=== PATIENT | male | born 1985 | race Hispanic/Latino ===

== ENCOUNTER 2023-04-16 06:16 | Inpatient (IN) | payer OTHER, SELFPAY ==
[2023-04-06 08:24] VITALS: BMI 29.7
[2023-04-16] VITALS (22 sets, daily range): BP systolic 99–132; BP diastolic 43–86; PULSE 69–114; RESP 9–21; TEMP 36–37.7; O2SAT 92–100; BMI 27.2
[2023-04-16] MEDS: ACETAMINOPHEN 325 MG TABLET 975 MG PO (06:58)
[2023-04-16] MEDS: LACTATED RINGERS 1,000 ML 42 ML IV ×2 (07:04→09:26)
--- NOTE | 2023-04-16 07:51 | PM.PREOP ---
Pre-operative Note Interval Note History & Physical reviewed/Exam performed by Physician: Yes Changes to H&P: No
[2023-04-16] MEDS: CEFAZOLIN 2 GM/100 ML PREMIX 100 ML IV ×3 (08:00→23:14)
--- NOTE | 2023-04-16 08:34 | SUR.OPER ---
Prone on spine table, head in foam head support, padded chest and pelvic supports, gel pad at knees, lower legs supported by pillows; nipples, genitalia and toes free of pressure, arms secured on foam padded arm boards at <90 degrees abduction. Tape over blanket at thigh secured to table.
[2023-04-16] MEDS: BUPIVACAINE LIPOSOME 266 MG/20 ML VIAL INJ (08:43)
[2023-04-16] MEDS: BUPIVACAINE 0.25% (PF) 30 ML, EPINEPHrine 0.15 MG INJ (08:43)
--- NOTE | 2023-04-16 10:36 | DI.RAD.S_ITS ---
PROCEDURE: XR LUMBAR SPINE 2-3V INDICATIONS: L5-S1 TLIF TECHNIQUE: 2 intraoperative views of the lumbar spine were acquired. COMPARISON: None. FINDINGS: Intraoperative exam during L5-S1 posterior spinal fixation and discectomy. The hardware appears intact. IMPRESSION: Intraoperative exam during L5-S1 posterior spinal fixation and discectomy. The hardware appears intact. Dictated by: Jose Zepeda M.D. on 04/16/2023 at 11:12 Approved by: Jose Zepeda M.D. on 04/16/2023 at 11:12
--- NOTE | 2023-04-16 10:48 | PM.OP.1 ---
Operative Date/Time/Diagnoses Date of procedure: 04/16/23 Time of procedure: 07:40 Pre-op diagnosis: 1. L5-S1 post laminectomy syndrome 2. L5-S1 spinal stenosis with radiculopathy 3. L4-5 spinal stenosis with radiculopathy Post-op diagnosis: same Procedure & Clinicians Procedure: 1. L5-S1 Postero-lateral and posterior interbody fusion 2. L5-S1 interbody cage placement. 3. L5-S1 decompressive laminectomy with bilateral facetecomies 4. L5-S1 Posterior non-segmental instrumentation 5. L4-5 left hemilaminectomy 6. [place] of bone marrow from iliac crest 7. Utilization of microsurgical technique and operating microscope Same procedure as scheduled: Yes Indications: Patient has been having chronic back pain and worsening lumbar radiculopathy. Patient had prior lumbar decompression surgery at L5-S1 with residual scar tissue and persistent severe lateral recess stenosis. There is a central stenosis at L4-5 along with lateral recess stenosis contributing to radiculopathy. Patient failed multiple conservative management with worsening pain weakness and numbness in his lower extremity. Patient has been having difficulty performing activity of daily living. After discussing risks benefits of treatment options, patient elected proceed with surgery. Surgeon: Alexey Espinoza Wood Mechanist: Abena Stewart Click Yes if Unassisted: No Anesthesia Type: General Operative Notes Closure Type: primary Prosthetic devices, grafts, tissues, transplants, or devices: Globus revolve screws, RIse cage Estimated Blood Loss (mL): 50 Blood products transfused: none Procedure in detail: Patient was seen in the preoperative area. Risks and benefits of the surgery was discussed with the patient. Informed consent was obtained from the patient and placed in the chart. Surgical site was marked. Patient was taken to the operative room. General anesthesia was administered. Prophylactic antibiotic was given to the patient less than 30 min before the incision was made. Patient was placed into a prone position on the Christopher table. Patient's back was then prepped and draped in the sterile fashion. Time-out was performed at this time. Using AP and lateral C-arm imaging the interval between L5-S1 was identified and marked on patient's back. A 2 inch incision 2 in from midline was made on the left side first. The fascia was incised in line with skin incision. Globus MARS retractors was placed inside the incision and docked onto the L5 lamina. Using microsurgical technique and operating microscope, a L5 laminectomy and L5-S1 facetectomy was performed using a Kerrison rongeur. The laminectomy and facetectomy was performed in order to decompress patient's cauda equina as well as the nerve roots exiting at the L5-S1 level. The disc space at L5-S1 was identified. And a total diskectomy was performed at L5-S1 level. The endplates were decorticated using a rasp and shaver. The total diskectomy and decortication was performed at L5-S1 level in order to to accomplish a L5-S1 fusion. The local bone from the laminectomy and facetectomy was saved for local bone grafting. After the total diskectomy and decortication was completed, DBM bone graft material was combined with local bone that was harvested earlier. At this time, a separate skin is incision was made over the iliac crest. A Jamshidi needle was inserted into the iliac crest through a separate skin incision. 5 cc of bone marrow aspiration was obtained through the separate skin incision using a Jamshidi needle from the iliac crest. The bone marrow aspiration was combined with local bone and the DBM bone grafting material. The bone grafting material was placed into the L5-S1 interbody space along with a expandable cage. The cage was expanded to its maximum height using the torque limiting screwdriver. At this time the MARS retractor was redirected over the L4 lamina. Using microsurgical technique and operating microscope, a L4-5 heminectomy was performed using the Kerrison rongeur. The ligamentum flavum was also resected at the side of the hemilaminectomy for further decompression of the epidural space. At this time a mirror image incision was made on the right side. The fascia was incised in line with the skin incision. Globus MARS retractor was inserted and docked onto the L5-S1 posterolateral gutter. Using the power drill, posterior-lateral decortication was performed at L5-S1 level until bleeding cortical bone was identified. The remaining bone grafting material was placed into the L5-S1 posterior lateral gutter he order to accomplish posterolateral fusion at the L5-S1 level. Using the double C-arm technique, pedicle screws were placed into the L5 and S1 pedicles bilaterally. This was done by placing the Jamshidi needle into the pedicles, then placing the guidewires over the Jamshidi needle, and finally placing the cannulated screws over the guidewires bilaterally. After the pedicle screws were placed, 2 titanium rods was locked into the heads of the pedicle screws using locking caps and torque limiting screwdriver. After all the hardware was placed, and confirmed with AP and lateral C-arm imaging, the wound was then irrigated with sterile normal saline and packed with Ray-Buck gauze for 3 min to accomplish hemostasis. After the gauze was removed the deep fascia was closed with #1 Vicryl suture. The subcutaneous layer was closed with 2-0 Vicryl. The skin was closed with skin aldo. Patient tolerated the procedure well. There were no complications. The Operation could not have been safely performed without compromising the technical result or length of the procedure, without the assistance of a skilled surgical nurse practitioner. The surgical nurse practitioner was medically necessary for proper positioning, retraction and manipulation of instruments, proper exposure, surgical preparation, and manipulation of tissue. Complications: none Post-operative Condition: stable Disposition: PACU Plan for aftercare: Admit to inpatient hospital
[2023-04-16] MEDS: HYDROMORPHONE 1 MG INJ IV ×6 (11:16→12:05)
[2023-04-16] MEDS: fentaNYL 100 MCG/2 ML INJ IV ×4 (11:28→11:50)
[2023-04-16] MEDS: OXYCODONE IR 5 MG TABLET PO ×2 (11:31→11:56)
--- NOTE | 2023-04-16 11:44 | SUR.PHASEI ---
Report given to Natasha.
[2023-04-16] MEDS: ONDANSETRON 4 MG/2 ML INJ IV (11:55)
[2023-04-16] MEDS: OXYCODONE IR 10 MG TABLET PO ×3 (13:28→19:46)
[2023-04-16] MEDS: hydrOXYzine pamoate 25 MG CAPSULE PO ×2 (13:28→19:46)
[2023-04-16] MEDS: LACTATED RINGERS 1,000 ML 125 ML IV ×2 (13:28→21:33)
[2023-04-16] MEDS: NAPROXEN 250 MG TABLET PO ×2 (15:11→20:40)
[2023-04-16] MEDS: ACETAMINOPHEN 325 MG TABLET 650 MG PO ×2 (15:11→20:41)
--- NOTE | 2023-04-16 15:38 | OT.IP.EVAL ---
Current Diagnoses Spinal stenosis, lumbar region with neurogenic claudication (04/16/23) Other specified postprocedural states (04/16/23) Surgery Performed Operation Date: 04/16/23 07:45 Actual Procedures p L4-5 hemilaminectomy, L5-S1 TLIF with posterior instrumentation - Alexey Espinoza MD Past Medical History Pre-diabetes Slovak speaking patient Surgical History (Last Updated 04/06/23 @ 09:19 by Divya Childers RN) History of back surgery (2006) History of back surgery (2020) Occupational Therapy Inpatient Evaluation/Re-Eval M1 PT/OT-IP Prior Functional Status Start: 04/16/23 15:40 Freq: NEEDED Status: Active Protocol: Document 04/16/23 14:50 [facility] (Rec: 04/16/23 15:56 [facility] [id number]) Medical Review Prior Functional Status Communication Slovak is his primary language. Mobility and Gait Prior pt did not use a device to walk with but had pain. Activities of Daily Living and IADL's Pt had pain during all ADl and IADL needs. Social History Household Members spouse Living Arrangements House Number of Floors (Floors) One Floor Number of Stairs To Enter/Railing? One step to enter the house. Home Environment Standard Height Toilet,Tub/ Shower Home Equipment Front Wheel Walker,Grab Bars Near Toilet Additional Social History Comment Pt has a supportive to be able to assist pt at home. M2 OT-IP Current Condition Start: 04/16/23 15:40 Freq: Status: Active Protocol: Document 04/16/23 14:50 [facility] (Rec: 04/16/23 15:56 [facility] [id number]) Occupational Therapy Current Condition Current Condition Evaluation Date 04/16/23 Treatment Diagnosis S/P L4-5 left leanna-laminectomy, L5-S1 lumbar fusion Diagnosis Onset Date 04/16/23 Post Operative Precautions Lumbar Precautions Log Roll,No Twisting,Limit Bending,Lifting Restriction of 10 lbs,Gait Belt above Incisional Area M3 OT- IP Subjective and Pain Start: 04/16/23 15:40 Freq: Status: Active Protocol: Document 04/16/23 14:50 [facility] (Rec: 04/16/23 15:56 [facility] [id number]) OT- Subjective Occupational Therapy Visit Type Type Initial Evaluation Visit Start Time 14:50 Visit Stop Time 15:38 Total Visit Minutes 48 Occupational Therapy Visit Comments Patient Comments Pt in pain but wanting to try to get up as tired on lying in bed. Patient/Caregiver Goals TO go home. OT Pain Assessment Pain When Pain Assessed At Rest Pain Present Pain Present Pain Reported Location back Intensity 10 Scale Used Numeric (0 - 10) M4 OT- IP ADL's Start: 04/16/23 15:40 Freq: Status: Active Protocol: Document 04/16/23 14:50 [facility] (Rec: 04/16/23 15:56 [facility] [id number]) OT [id number] Comments OT Self-Feeding Comments Not at meal time, no issues anticipated. OT ADL-Grooming Comments OT Grooming Comments Not performed. OT ADL-Oral Care Comments Oral Care Comments Educated pt on best to spit into a cup or hinge at his hips when during oral care needs. OT ADL-Dressing General Eval Lower Body Dressing Ability Maximum Assistance Comments OT Dressing Comments Pt's states to be helping pt. Able to initiate education of LB dressing equipment needs. OT ADL-Toileting Comments OT Toileting Comments Not performed. Suggested to bring the urinal home. OT ADL-Bathing Comments OT Bathing Comments Not performed. Pt may benefit from a shower chair and HHSP at home. Spoke on care for the bandage for showering needs. M5 OT- IP IADL's Start: 04/16/23 15:40 Freq: Status: Active Protocol: Document 04/16/23 14:50 [facility] (Rec: 04/16/23 15:56 [facility] [id number]) OT-Instrumental Activities of Daily Living Deficits IADL Deficits Identified Deficits Home Safety Awareness Awareness of Need for Assistance at Home Good Awareness Home Safety Comments Pt is a little groggy and has a supportive to assist with all his needs. Meal Preparation Meal Preparation Caregiver Provides Assist Catering Coordinator Catering Coordinator Caregiver Provides Assist M6 OT- IP Functional Cognition Start: 04/16/23 15:40 Freq: Status: Active Protocol: Document 04/16/23 14:50 [facility] (Rec: 04/16/23 15:56 [facility] [id number]) Cognitive Factors Limiting Selfcare Function Cognitive Ability Level of Alertness Alert Patient Orientation Name,Place,Situation Attention Span Ability Capable of Focused Attention, Capable of Sustained Attention Ability to Follow Commands Able to Follow One Step Commands Cognitive Comments Cognitive Assessment Comments Pt is a little groggy but able to follow commands for ADl and mobility needs. HAving to educated pt on his back precautions and how to incorporate them for ADl and mobility needs. OT- Vision and Hearing OT- Hearing Assessment OT- Hearing Assessment WFL OT- Vision Assessment Visual Acuity WFL M7 OT- IP Mobility and Balance Start: 04/16/23 15:40 Freq: Status: Active Protocol: Document 04/16/23 14:50 [facility] (Rec: 04/16/23 15:56 [facility] [id number]) OT- Bed Mobility Assessment Supine to Sit Supine to Sit Assist Contact Guard Assistance Sit to Supine Sit to Supine Assist Minimal Assistance Scooting Scooting to Edge of Bed Standby Assistance OT-Transfer Assessment Sit to and From Stand Sit to and from Stand Minimal Assistance Transfers Transfer Ability Contact Guard Assistance Technique Transfer Destination Bed Transfer Technique Stand Step Pivot Devices Transfer Assistive Devices Gait Belt,Front Wheeled Walker Comments Mobility Comments Pt having to use the bed rail to assist to get up in addition to CGA by the therapist. JULISA to help get his legs back to bed. JULISA to stand and close SBA to CGA when up on his feet with the FWW. OT- Balance Assessment Sitting Balance and Reactions Static Sitting Balance Ability Good Dynamic Sitting Balance Ability Good Standing Balance and Reactions Static Standing Balance Ability Fair Dynamic Standing Balance Ability Fair M9 OT- IP Assessment and Plan Start: 04/16/23 15:40 Freq: Status: Active Protocol: Document 04/16/23 14:50 [facility] (Rec: 04/16/23 15:56 [facility] [id number]) OT Summary Assessment and Plan Potential Rehabilitation Potential Excellent Analytic Complexity at Evaluation Low Summary OT Impairments Pain,Functional Mobility, Grooming,Dressing,Toileting, Bathing,Toilet Transfers, Shower Transfers,Activity Tolerance Progress Towards Goals Progressing Toward Goals,Slow Progress due to Pain Assessment Summary Pt low complexity and main barriers are pain, one step at home, and now will need LB dressing equipment or his to assist for ADL needs. Pt will benefit from a shower chair as well. Pt to go home with assist when medically stable. Already initiated caregiver training with pt's for ADL and mobility needs. Goals Grooming Goal Independent Dressing Goal Minimal Assistance Toileting Goal Independent Bathing Goal Independent Toilet Transfer Goal Independent Shower Transfer Goal Independent Days to Meet Goals 5 Frequency of Treatment Frequency Of Treatment Once a Day Treatment Plan OT Treatment Plan ADL Training,Functional Mobility,Patient/Family Education,Discharge Planning Other Treatment Recommendations and Next shower Treatment Focus Discharge Recommendations OT Discharge Recommendations Home with Assistance Home Equipment Needs shower chair, hand held shower spray Transportation Needs at Discharge Private Vehicle
[2023-04-16] MEDS: HYDROMORPHONE 0.5 MG INJ IV ×2 (18:13→21:27)
[2023-04-16] MEDS: SENNOSIDES 8.6 MG TABLET 17.2 MG PO (20:40)
[2023-04-16] MEDS: DOCUSATE 100 MG CAPSULE PO (20:40)
[2023-04-17] MEDS: OXYCODONE IR 10 MG TABLET PO ×4 (01:19→12:09)
[2023-04-17] MEDS: hydrOXYzine pamoate 25 MG CAPSULE PO ×3 (01:19→11:00)
[2023-04-17] MEDS: ACETAMINOPHEN 325 MG TABLET 650 MG PO ×2 (04:44→11:00)
[2023-04-17 04:47] VITALS: BP 107/59; PULSE 72; RESP 18; O2SAT 94
[2023-04-17] MEDS: LACTATED RINGERS 1,000 ML 125 ML IV (04:49)
--- NOTE | 2023-04-17 07:36 | PM.PNPO.1 ---
Subjective Subjective Date Patient Seen: 04/17/23 Time Patient Seen: 07:36 Interval history: Patient's pain is 7/10. Denies fever or chills. No nausea or vomiting. Patient has his available at home to assist him. Exam Vital Signs (past 8 hours): - 04/17/23 04:47 Pulse Rate 72 Respiratory Rate 18 Blood Pressure 107/59 L Pulse Oximetry 94 Oxygen Flow Rate 0 Oxygen Delivery Method Room Air Oxygen Flow Rate 0 Narrative Exam Narrative: 38-year-old male resting comfortably in bed in no apparent distress. Motor functions intact bilateral lower extremities. Sensation grossly intact to light touch bilateral lower extremities. Const General: cooperative and comfortable Nutritional Appearance: average body habitus Orientation: alert Resp Effort & Inspection: normal respiratory effort and able to speak in complete sentences [facility] Medical History (Updated 04/06/23 @ 08:54 by Divya Childers RN) Kinyarwanda speaking patient Pre-diabetes Surgical History (Updated 04/06/23 @ 09:19 by Divya Childers RN) History of back surgery (2020) History of back surgery (2006) Social History household members: spouse and children Smoking Status: Never smoker alcohol intake: never Assessment & Plan Post-op Postoperative Procedures: Procedures Operation Date: 04/16/23 07:45 Actual Procedure Side Surgeon p L4-5 hemilaminectomy, L5-S1 TLIF with posterior instrumentation Alexey Espinoza MD Postoperative day: 1 Postoperative status: doing well and marginal pain control Postoperative plan: routine post-op care Postoperative plan narrative: Mobilize with physical therapy. Limit bending, twisting, lifting Multimodal pain management Disposition likely home later today if safe for home environment Quality VTE Deep Vein Thrombosis/Pulmonary Embolism Present on Admission: No
[2023-04-17 08:00] VITALS: BP 123/44; PULSE 74; RESP 18; TEMP 36.1; O2SAT 96
[2023-04-17] MEDS: CYCLOBENZAPRINE 10 MG TABLET 5 MG PO (08:36)
[2023-04-17] MEDS: NAPROXEN 250 MG TABLET PO (08:37)
[2023-04-17] MEDS: DOCUSATE 100 MG CAPSULE PO (08:37)
--- NOTE | 2023-04-17 09:35 | PT.IIE ---
Current Diagnoses Spinal stenosis, lumbar region with neurogenic claudication (04/16/23) Other specified postprocedural states (04/16/23) Surgery Performed Operation Date: 04/16/23 07:45 Actual Procedures p L4-5 hemilaminectomy, L5-S1 TLIF with posterior instrumentation - Alexey Espinoza MD Surgical History (Last Updated 04/06/23 @ 09:19 by Divya Childers RN) History of back surgery (2006) History of back surgery (2020) Medical History Pre-diabetes Kazakh speaking patient Physical Therapy Inpatient Evaluation/Re-Eval M1 PT/OT-IP Prior Functional Status Start: 04/16/23 15:40 Freq: NEEDED Status: Active Protocol: Document 04/17/23 08:35 [facility] (Rec: 04/17/23 09:35 [facility] [id number]) Medical Review Prior Functional Status Medical History Reviewed Yes Communication Kazakh is his primary language. Mobility and Gait Prior pt did not use a device to walk with but had pain. Activities of Daily Living and IADL's Pt had pain during all ADl and IADL needs. Social History Household Members spouse,children Living Arrangements House Number of Floors (Floors) One Floor Number of Stairs To Enter/Railing? One step to enter the house. Home Environment Standard Height Toilet,Tub/ Shower Home Equipment Front Wheel Walker,Grab Bars Near Toilet Additional Social History Comment Pt has a supportive to be able to assist pt at home. M2 PT-IP Current Condition Start: 04/16/23 13:05 Freq: NEEDED Status: Active Protocol: Document 04/17/23 08:35 [facility] (Rec: 04/17/23 09:35 [facility] [id number]) Physical Therapy Current Condition Current Condition Evaluation Date 04/17/23 Treatment Diagnosis L4-L5 hemilaminectomy, L5-S1 TLIF posterior instrumentation M3 PT-IP Subjective Start: 04/16/23 13:05 Freq: NEEDED Status: Active Protocol: Document 04/17/23 08:35 [facility] (Rec: 04/17/23 09:35 [facility] [id number]) Subjective Physical Therapy Visit Type Type Initial Evaluation Visit Start Time 08:35 Visit Stop Time 09:15 Total Visit Minutes 40 Notes Lonny, head host/hostess number [id number] present for entire PT evaluation and answers questions as needed/interprets for pt as needed Number of SET UP PERSON Visits 0 Physical Therapy Visit Comments Patient Comments Pt reports 10/10 ongoing back pain and pain into posterior left buttocks and need to urinate and wish to go to the BR. Patient Goals To go home today Therapy Pain Assessment Pain When Pain Assessed At Rest Pain Present Pain Present Pain Reported Location Left Leg Intensity 10 Scale Used Numeric (0 - 10) Description Acute Pain Behaviors Guarding Pain Management Techniques Modification of Treatment,Re- positioning back Intensity 10 Scale Used Numeric (0 - 10) Description Acute Pain Behaviors Guarding Pain Management Techniques Modification of Treatment,Re- positioning M4 PT-IP Mobility and Gait Start: 04/16/23 13:05 Freq: NEEDED Status: Active Protocol: Document 04/17/23 08:35 [facility] (Rec: 04/17/23 09:35 [facility] [id number]) PT-Bed Mobility Assessment Rolling Type of Rolling Roll to Right Level of Assist Independent Supine to Sit Supine to Sit Independent PT-Transfer Assessment Sit to and From Stand Sit to and from Stand Independent,Standby Assistance ,Use of Upper Extremities Equipment Transfer Assistive Device Gait Belt,Front Wheeled Walker Orthotic/Prosthetic Devices or Brace: No Transfers Transfer Destination Toilet Transfer Technique Ambulation Transfer Ability Level of Assist Independent Comments Mobility Comments Pt is initially superv and then I for transfers, moving slowly d/t pain. He is I with urination in the restroom Gait Assessment Gait Gait Assistance Required: Independent,Standby Assistance Distance (Feet) 70 Able to Maintain Weight Bearing Status Yes During Gait Assistive Devices Assistive Device Gait Belt,Front Wheeled Walker Orthotic/Prosthetic Devices or Brace: No Gait Deviations General Gait Pattern Antalgic,Decreased Stride Length,Decreased Feet Clearance Factors Limiting Gait Function Factors Limiting Gait Function Decreased Activity Tolerance, Pain Comments Gait Comments Pt gait is very slow and he reports posterior left leg pain. He reports some ongoing weakness in LLE with gait. He gait trains 70'x2 with RW. Stair Climbing Assessment Evaluation Level of Assist On Stairs Standby Assistance,1 Person Assistance Devices Stair Climbing Assistive Devices Front Wheel Walker Technique/Endurance Stair Climbing Direction Ascend and Descend Stair Climbing Technique Step to Step Number of Steps Climbed 1 Query Text: Stair Climbing Set # Repetitions (reps) 1 Comments Stair Climbing Comments Ed pt in step up with RW, lead with right foot and then step down with weaker foot first PT-Balance Assessment Sitting Balance and Reactions Static Sitting Balance Ability Good Dynamic Sitting Balance Ability Good Standing Balance and Reactions Static Standing Balance Ability Good Dynamic Standing Balance Ability Good Device Used RW M5 PT-IP Objective Assessments Start: 04/16/23 13:05 Freq: NEEDED Status: Active Protocol: Document 04/17/23 08:35 [facility] (Rec: 04/17/23 09:35 [facility] [id number]) Orientation Orientation/Cognition Level of Alertness Alert Orientation Name,Place,Situation Language Function Ability No Deficits Noted Safety Awareness Understands Safety Issues Memory Description No Deficits Noted Comments Pt recalls 3/3 back precautions upon PT arrival and pt states that the pain is better in his posterior left leg that it was pre-op. Gross Range of Motion Upper Extremity ROM Assessment Within Functional Limits Lower Extremity ROM Assessment Within Functional Limits Strength Upper Extremity Strength Assessment Within Functional Limits Lower Extremity Strength Assessment Left Impaired Comments Strength Comments Some residual functional weakness in left leg post-op Sensation Assessment Sensation Gross Sensation WNL M6 PT-IP Treatment Start: 04/16/23 13:05 Freq: NEEDED Status: Active Protocol: Document 04/17/23 08:35 [facility] (Rec: 04/17/23 09:35 [facility] [id number]) Physical Therapy Treatment Education Education Provided Precautions,Weight Bearing Status,Post-Op Packet,Safety Brace Education Patient M7 PT-IP Assessment and Plan Start: 04/16/23 13:05 Freq: NEEDED Status: Active Protocol: Document 04/17/23 08:35 [facility] (Rec: 04/17/23 09:35 [facility] [id number]) PT Summary Assessment and Plan Potential Rehabilitation Potential Excellent Summary Progress Towards Goals Safe For Discharge Assessment Summary Pt is a 38 y/o male presenting post-op day one. He is listed as a primary Kazakh speaker and head host/hostess [phone] present during PT evaluation. He con' t with high c/o pain and his mobility is very slow but he is mod I with RW. He performs bed mobility, transfers, gait and one step with PT today. He recalls all back precautions. His will pick him up and he will have her assistance at home at d/c. He has a RW. Recommend OPPT when cleared by surgeon. Precautions Lumbar Precautions Log Roll,No Twisting,Limit Bending,Lifting Restriction of 10 lbs,Gait Belt above Incisional Area Weight Bearing Status Weight Bearing Status Weight Bear as Tolerated Recommendations To Nursing Amount of Assist Needed Standby Assistance Discharge Recommendations PT Discharge Recommendations Home with Assistance, Outpatient PT Transportation Needs at Discharge Private Vehicle
--- NOTE | 2023-04-17 13:11 | P.DS_ITS ---
History of Present Illness History of Present Illness Date Patient Seen: 04/17/23 Time Patient Seen: 13:11 Chief complaint: Back pain Narrative: See progress note Discharge Providers Provider Date of admission: 04/16/23 06:16 Discharge Date: 04/17/23 Primary care physician: Luis Albarran MD Consults: 04/16/23 12:56 Consult to Occupational Therapy Evaluate & Treat Comment: Physician Instructions: Evaluate and treat Consult to Physical Therapy Evaluate & Treat Comment: Physician Instructions: Evaluate and Treat Discharge provider: Baljit Thompson PA-C Summary Hospital Course Discharge Diagnosis: 1. L5-S1 post laminectomy syndrome 2. L5-S1 spinal stenosis with radiculopathy 3. L4-5 spinal stenosis with radiculopathy Hospital Course: 1. L5-S1 Postero-lateral and posterior interbody fusion 2. L5-S1 interbody cage placement. 3. L5-S1 decompressive laminectomy with bilateral facetecomies 4. L5-S1 Posterior non-segmental instrumentation 5. L4-5 left hemilaminectomy 6. 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 Utilization of microsurgical technique and operating microscope Same procedure as scheduled: Yes Indications: Patient has been having chronic back pain and worsening lumbar radiculopathy. Patient had prior lumbar decompression surgery at L5-S1 with residual scar tissue and persistent severe lateral recess stenosis. There is a central stenosis at L4-5 along with lateral recess stenosis contributing to radiculopathy. Patient failed multiple conservative management with worsening pain weakness and numbness in his lower extremity. Patient has been having difficulty performing activity of daily living. After discussing risks benefits of treatment options, patient elected proceed with surgery. Surgeon: Alexey Epsinoza Print Binding Worker: Abena Stewart Click Yes if Unassisted: No Anesthesia Type: General Operative Notes Closure Type: primary Prosthetic devices, grafts, tissues, transplants, or devices: Globus revolve screws, RIse cage Estimated Blood Loss (mL): 50 Blood products transfused: none Patient admitted to the hospital for the above-mentioned procedure. Patient consented to the same. Patient underwent L5-S1 fusion, L4-L5 left hemilaminectomy on April 16, 2023. Patient back in his room recovering well as in stable condition. Multimodal pain management. Keep dressing clean and dry. Weightbearing as tolerated, limit bending, twisting, lifting. Discharge home today in stable condition Exam Vital Signs (past 8 hours): - 12/19/23 08:00 Temperature 97.0 F L Pulse Rate 74 Respiratory Rate 18 Blood Pressure 123/44 L Pulse Oximetry 96 Oxygen Flow Rate 0 Oxygen Delivery Method Room Air Oxygen Flow Rate 0 Narrative Exam Narrative: See progress note [facility] Medical History [place] speaking patient Pre-diabetes Surgical History History of back surgery (2020) History of back surgery (2006) Social History household members: spouse and children Smoking Status: Never smoker alcohol intake: never Discharge Assessment & Plan Assessment and Plan Assessment: Patient progressing as expected Plan of Treatment: Multimodal pain management Weightbearing as tolerated, limit bending, twisting, lifting Discharge home today in stable condition Discharge Plan Discharge Plan Patient Disposition: Home Discharge orders & Medications Prescriptions: New acetaminophen 325 mg Tablet 650 mg PO Q6H PRN (Reason: Fever/Mild Pain (1-3)) Qty: 60 0RF hydroxyzine pamoate 25 mg Capsule 25 mg PO Q4HR PRN (Reason: Nausea And Vomiting) Qty: 30 0RF Rx Instructions: Take 1-2 every 4 hours as needed for muscle spasms/nausea polyethylene glycol 3350 17 gram Powder In Packet 17 gm PO DAILY PRN (Reason: Constipation) Qty: 10 0RF oxycodone 10 mg Tablet 10 mg PO Q3H PRN (Reason: Pain, Severe (7-10)) Qty: 40 0RF Continued diclofenac sodium 50 mg Tablet,Delayed Release (Dr/Ec) 50 mg PO TID cyclobenzaprine 5 mg Tablet 5 mg PO DAILY Follow up/Referrals: Alexey Espinoza MD [Physician] - As previously scheduled (Follow up with Cuauhtemoc Skinner PA-C, on 05/03/2022 @ 3:30 pm at [facility] office in [place].) Luis Albarran MD [Primary Care Provider] - Diet/Activity/Treatments Diet: Diet as Tolerated Activity: No deep bending or twisting at the waist. No lifting more than 10 pounds. Cold/Heat Therapy: Heating pad to low back as needed for pain. Skin/Wound/Dressing Care Report to your healthcare provider any signs of infection, such as:: chills, fever, night sweats, unusual drainage and unusual redness Dressing: May shower. Keep dressing as dry as possible. If dressing becomes wet or dirty, may remove and replace with clean, dry gauze. No bathing or otherwise soaking incisions. Do not apply any creams, lotions, or ointments to incision. Visit Report/Discharge Packet Instructions: DI for Prescription Opioid Use, DI for Transforaminal Lumbar Interbody Fusion Stand Alone Forms: Patient Portal/API, Stroke Signs & Symptoms, Surgery Discharge Discharge Data Primary Care Provider: Luis Albarran VTE Deep Vein Thrombosis/Pulmonary Embolism Present on Admission: No
--- NOTE | 2023-04-17 13:30 | OT.IP.TRT ---
Current Diagnoses Spinal stenosis, lumbar region with neurogenic claudication (04/16/23) Other specified postprocedural states (04/16/23) Surgery Performed Operation Date: 04/16/23 07:45 Actual Procedures p L4-5 hemilaminectomy, L5-S1 TLIF with posterior instrumentation - Alexey Espinoza MD Occupational Therapy Treatment Note M2 OT-IP Current Condition Start: 04/16/23 15:40 Freq: Status: Active Protocol: Document 04/16/23 14:50 [facility] (Rec: 04/16/23 15:56 [facility] [id number]) Occupational Therapy Current Condition Current Condition Evaluation Date 04/16/23 Treatment Diagnosis S/P L4-5 left hemilaminectomy, L5-S1 lumbar fusion Diagnosis Onset Date 04/16/23 Post Operative Precautions Lumbar Precautions Log Roll,No Twisting,Limit Bending,Lifting Restriction of 10 lbs,Gait Belt above Incisional Area M3 OT- IP Subjective and Pain Start: 04/16/23 15:40 Freq: Status: Active Protocol: Document 04/17/23 12:52 [facility] (Rec: 04/17/23 13:40 [facility] [id number]) OT- Subjective Occupational Therapy Visit Type Visit Start Time 12:52 Visit Stop Time 13:30 Total Visit Minutes 38 Occupational Therapy Visit Comments Patient Comments Pt agreed to shower and present for caregiver training . Patient/Caregiver Goals TO go home. OT Pain Assessment Pain When Pain Assessed At Rest Pain Present Pain Present Pain Reported Location Left Leg Intensity 10 Scale Used Numeric (0 - 10) M4 OT- IP ADL's Start: 04/16/23 15:40 Freq: Status: Active Protocol: Document 04/17/23 12:52 [facility] (Rec: 04/17/23 13:40 [facility] [id number]) OT JEN-Toeo-Jbqvwwr General Evaluation Self-Feeding Ability Independent OT ADL-Grooming General Evaluation Grooming Ability Independent OT ADL-Oral Care General Eval Oral Care Ability Independent OT ADL-Dressing General Eval Upper Body Dressing Ability Independent Lower Body Dressing Ability Minimal Assistance Comments OT Dressing Comments Pt's able to assist pt for dressing needs. Pt reshown LB dressing equipment. OT ADL-Toileting General Evaluation Toileting Ability Standby Assistance Comments OT Toileting Comments Pt able to sit on the toilet to urinal. Educated best to stand to wipe for ease and completely to follow his back precautions. OT ADL-Bathing Bathing Type Bathing Type Shower General Evaluation Bathing Ability Moderate Assistance Comments OT Bathing Comments Pt's assist for his legs and back. Suggested to have a shower chair at home to use. M5 OT- IP IADL's Start: 04/16/23 15:40 Freq: Status: Active Protocol: Document 04/16/23 14:50 [facility] (Rec: 04/16/23 15:56 [facility] [id number]) OT-Instrumental Activities of Daily Living Deficits IADL Deficits Identified Deficits Home Safety Awareness Awareness of Need for Assistance at Home Good Awareness Home Safety Comments Pt is a little groggy and has a supportive to assist with all his needs. Meal Preparation Meal Preparation Caregiver Provides Assist Care Management Associate Care Management Associate Caregiver Provides Assist M6 OT- IP Functional Cognition Start: 04/16/23 15:40 Freq: Status: Active Protocol: Document 04/17/23 12:52 [facility] (Rec: 04/17/23 13:40 [facility] [id number]) Cognitive Factors Limiting Selfcare Function Cognitive Comments Cognitive Assessment Comments Intact. Pt just needing reminders to push up with his hands when coming to stand. M7 OT- IP Mobility and Balance Start: 04/16/23 15:40 Freq: Status: Active Protocol: Document 04/17/23 12:52 [facility] (Rec: 04/17/23 13:40 [facility] [id number]) OT- Bed Mobility Assessment Supine to Sit Supine to Sit Assist Standby Assistance Scooting Scooting to Edge of Bed Standby Assistance OT-Transfer Assessment Sit to and From Stand Sit to and from Stand Standby Assistance Transfers Transfer Ability Standby Assistance Technique Transfer Destination Bed,Chair,Toilet Transfer Technique Stand Step Pivot Devices Transfer Assistive Devices Gait Belt,Front Wheeled Walker Comments Mobility Comments Pt now SBA with mobility needs and able to educated pt's to anamaria/doff the gait belt and how to assist pt as needed. OT- Balance Assessment Sitting Balance and Reactions Static Sitting Balance Ability Normal Dynamic Sitting Balance Ability Good Standing Balance and Reactions Static Standing Balance Ability Good Dynamic Standing Balance Ability Fair M9 OT- IP Assessment and Plan Start: 04/16/23 15:40 Freq: Status: Active Protocol: Document 04/17/23 12:52 [facility] (Rec: 04/17/23 13:40 [facility] [id number]) OT Summary Assessment and Plan Potential Rehabilitation Potential Excellent Analytic Complexity at Evaluation Low Summary OT Impairments Pain,Functional Mobility, Grooming,Dressing,Toileting, Bathing,Toilet Transfers, Shower Transfers,Activity Tolerance Progress Towards Goals Progressing Toward Goals Assessment Summary Pt's able to participate in caregiver training for all ADl and mobility needs. Pt's to be home to assist for all needs. Pt would benefit from LB dressing equipment, shower chair and hand held shower spay. Goals Grooming Goal Independent Dressing Goal Minimal Assistance Toileting Goal Independent Bathing Goal Independent Toilet Transfer Goal Independent Shower Transfer Goal Independent Days to Meet Goals 3 Frequency of Treatment Frequency Of Treatment Once a Day Treatment Plan OT Treatment Plan ADL Training,Functional Mobility,Patient/Family Education,Discharge Planning Other Treatment Recommendations and Next shower Treatment Focus Discharge Recommendations OT Discharge Recommendations Home with Assistance Home Equipment Needs shower chair, hand held shower spray, LB dressing equipment Transportation Needs at Discharge Private Vehicle
--- NOTE | 2023-04-17 14:36 | CM.DPC ---
DCP Cont. Reviewed EMR and team rounds for pt's medical status and anticipated d/c needs. Pt left the building prior to this BUNG DRIVER being able to meet with him in person. Plan: Discharge home w/assistance, pt's providing for care and transportation home. Payor: [employer] Attending: Dr. Espinoza Pt is a 38 year-old M with a hx of worsening lower back pain and worsening lumbar radiculopathy. He's tried conservative methods for pain control, however nothing was effective for lasting benefit. Pt resides with his and family in his own home, is independent at baseline, this is being considered a workplace related injury necessitating surgical intervention. Pt was admitted on 04/16/23, and a left hemilaminectomy/lumbar fusion was completed that day. Pt worked with therapies today, recommendations were for d/c home with assistance, OP PT once he is cleared by Ortho in scheduled f/u visits. No DCP needs were identified at this time. Discharge Planning/Care Management CM Discharge Assessment Start: 04/17/23 14:33 Freq: Status: Discharge Protocol: Document 04/17/23 14:33 [facility] (Rec: 04/17/23 14:35 [facility] [id number]) Discharge Planning Assessment Assigned Automated Process Operator STU Kidd Advance Directives? No History Provided By Medical Record Prior Living Arrangements House Household Members spouse,children Type of transporation used prior to Drives own vehicle admit Independent with ADL's Yes Is patient alert and oriented? Yes Community Services used prior to Physical Therapy admission: DME Already Rented / Owned FWW / Walker Patient/Family Preference OP PT Therapy Barriers to Discharge No Community Services Physical Therapy Referrals Initiated None needed Whiteboard Updated in Patient Room with No name and ext. # of Automated Process Operator Review Status In Process Please Provide Date Initial DC 04/17/23 Assessment Was Performed Pre-Anesthesia Assessment Start: 04/06/23 08:24 Freq: Status: Discharge Protocol: Document 04/06/23 08:24 [facility] (Rec: 04/06/23 09:43 [facility] [id number]) Pre-Anesthesia Assessment PAC Comment Patient completed Stress Echo 02/21/23-low risk study, records scanned and in surgery folder for dos. Life Cycle Assessment Analyst needed Preferred Name Darian Patient Information Reviewed Via Phone Assessment Assessment Completed With Patient,Life Cycle Assessment Analyst Comment Language exchange [phone] Primary Care Provider Luis Albarran Seen Specialist in Last 12 Months Yes Specialist Seen Dog License Officer Supervisor,Orthopedist Primary Language Outdoor Adventure Instructor Required Yes Height 170.18 cm Weight 86.183 kg Body Mass Index (BMI) 29.7 Hearing Ability Normal Visual Impairment No Limitations Visual Assist None Dentition Type Teeth, Natural Present,Teeth, Missing Barriers to Learning Language Hx Anesthesia Reactions No Hx Family Anesthesia Reaction No Hx Malignant Hyperthermia No Hx Blood Transfusions No Anesthesia Review Requested Yes: Review prior to Echo Stress 02/21/23-low risk study in folder for review alcohol intake never Smoking Status Never smoker Substance Use Type does not use Pain Present Pain Reported Musculoskeletal Symptoms Abnormal Gait,Back Pain, Difficulty Walking History of Falling (Recent or History of No ) Patient is completely paralyzed or No completely immobile Prosthesis or Orthotic Device Cane Mental Status Oriented to own ability Is patient on oxygen? No Does patient have DUKES/SOB No Hx Sleep Apnea No Currently Taking a Beta Marv No Hx Chest Pain Yes Hx SOB No Hx Syncope or Dizziness No Anti-Coagulant Therapy No Has a Dog License Officer Supervisor Yes: Last visit 11/10/22 Dog License Officer Supervisor name Dr. Victor @ [facility] Cardiac Testing Yes: Stress test @ [facility] -low risk study Hx Pacemaker/ICD No Pacemaker Rep Required? No Cardiac Clearance Received Yes Comment Cardiac records scanned and in surgery folder for dos. Diet Type At Home Regular Dysphagia No Gastrointestinal Symptoms None Chronic UTI No Urinary Catheter Present No Hx Urinary Self Catheterization No Diabetes No Hx Drug Resistant Organism No Presence of External or Internal Medical Yes: Lumbar fusion Devices Received a COVID vaccine? Yes Received all doses? No Marital Status Lives With spouse,children Current Living Arrangements House Number of Floors (Floors) One Floor Support System Spouse Does the Patient Have Assistance After Yes Surgery Patient Discharge Plan Description Return Home Comment Pt not advised on length of stay per surgeon Feels Safe in Current Environment Yes Been Physically Hurt or Threatened By a No Person in Current Environment Do you have thoughts of harming yourself None or others? Are you currently considering suicide? No Do you have a plan to hurt yourself or No Plan others? Do You Have Any Spiritual Beliefs That No May Affect Your HC Choices? Do You Have Any Cultural Practices That No May Affect Your HC Choices? Who Can We Speak to About Patient's Care Family, friends Identifying Code for Release of Patient Declines to issue Information Health Care Proxy/Next of Kin Jil () Health Care Proxy Emergency Contact Name Jil () Emergency Contact Advance Directives? No Power of Retail Loan Originator Assistant No PAC Instructions Durable medical equipment, Medications to take/avoid, Nasal antibiotic,No ETOH/ petroleum product on skin DOS, NPO,Pre-surgical wash,Sturdy shoes/comfortable clothes,Do not bring valuables and remove jewelry
== END 2023-04-17 13:44 | disposition home or self-care (01) | DRG 304 ==
PROVIDERS: Admitting Provider Orthopaedic Surgery Orthopaedic Surgery of the Spine; PCP Family Medicine; Referring Provider Orthopaedic Surgery Orthopaedic Surgery of the Spine; Visit Provider Orthopaedic Surgery Orthopaedic Surgery of the Spine
PROC: 0SG30AJ Fusion of Lumbosacral Joint with Interbody Fusion Device, Posterior Approach, Anterior Column, Open Approach (ICD-10-PCS; principal; 2023-04-16 07:45)
DX: M96.1 Postlaminectomy syndrome, not elsewhere classified (principal); M48.07 Spinal stenosis, lumbosacral region; M54.17 Radiculopathy, lumbosacral region; M48.061 Spinal stenosis, lumbar region without neurogenic claudication; M54.16 Radiculopathy, lumbar region; Y83.8 Other surgical procedures as the cause of abnormal reaction of the patient, or of later complication, without mention of misadventure at the time of the procedure; R73.03 Prediabetes
CPT/HCPCS: 72100; 76000; 82962; 97116; 97161; 97165; 97530; 97535; C1831; C9290; J0171; J0690; J1100; J1170; J2405; J2704; J3010